=== PATIENT | female | born 1970 | race African-American/Black ===

== ENCOUNTER 2019-06-29 17:47 | Emergency (ER) | payer SELFPAY ==
[~2019-06-29] VITALS: Ht 172.7 cm; Wt 89.0 kg
[2019-06-29] MEDS ORDERED: AMLODIPINE 5MG TABLET PO ONE (18:30)
[2019-06-29] MEDS ORDERED: CLONIDINE 0.2MG TABLET PO ONE (18:30)
[2019-06-29 19:21] VITALS: BP 146/101
== END 2019-06-29 20:02 | disposition home or self-care (01) ==
LOC: ER 17:47
DX: I10 Essential (primary) hypertension (principal); R51 Headache; R11.0 Nausea; T46.5X6A Underdosing of other antihypertensive drugs, initial encounter; Z91.128 Patient's intentional underdosing of medication regimen for other reason; Y92.038 Other place in apartment as the place of occurrence of the external cause
CPT/HCPCS: 99283